=== PATIENT | female | born 1940 | race Caucasian/White ===

== ENCOUNTER → 2017-09-05 | Outpatient (CLI) | payer OTHER ==
--- NOTE | 2017-09-05 15:19 | MAMMOGRAPHY REPORT ---
BILATERAL DIGITAL SCREENING MAMMOGRAM TOMOSYNTHESIS WITH CAD: 09/05/2017 CLINICAL HISTORY: Routine screening. Patient has no complaints. TECHNIQUE: Breast tomosynthesis in addition to standard 2D mammography was performed. Current study was also evaluated with a Computer Aided Detection (CAD) system. COMPARISON: Comparison is made to exams dated: 09/04/2016 mammogram, 08/31/2015 mammogram, 08/28/2014 mammogram, 08/27/2013 mammogram, 08/26/2012 mammogram, and 08/22/2011 mammogram - [facility]. BREAST COMPOSITION: There are scattered areas of fibroglandular density in both breasts. FINDINGS: No suspicious masses, calcifications, or areas of architectural distortion are noted in ei ther breast. There has been no significant interval change compared to prior exams. IMPRESSION: ACR BI-RADS CATEGORY 1: NEGATIVE There is no mammographic evidence of malignancy. A 1 year screening mammogram is recommended. The pa tient will receive written notification of the results. Approximately 10% of breast cancers are not detected with mammography. A negative mammographic report should not delay biopsy if a clinically suggestive mass is present. Chio Wade M.D. /:09/05/2017 11:47:12 Electric Frying Pan Repairer: Herminia ARNOLD(Charley)(Rosalina), [facility] letter sent: Normal 1/2 BI-RADS Code: ACR BI-RADS Category 1: Negative
== END | disposition home or self-care (01) ==
LOC: C.MAMM 09:45
PROVIDERS: ATTEND Family Medicine
DX: Z12.31 Encounter for screening mammogram for malignant neoplasm of breast (principal)

== ENCOUNTER 2020-07-26 16:22 | Observation (INO) ==
[2020-07-26] MEDS ORDERED: SODIUM CHLORIDE 0.9% 1000ML 1,000 ML IV SCH (17:45)
--- NOTE | 2020-07-26 17:55 | Emergency Department Note ---
History of Present Illness General Chief complaint: Referred by Doctor Stated complaint: NO FEELING LT SIDE - DR REF Time Seen by Provider: 07/26/20 17:33 Source: patient Mode of arrival: ambulatory Limitations: no limitations History of Present Illness Provider complaint: Left hand and left foot numbness This is a 80-year-old female who presents from PCPs office for stroke like evaluation. The patient states that yesterday morning around 930 she lost a sensation of her left foot and left hand. The patient states that she was having some difficulty grabbing things. She was able to walk with minimal difficulty. The patient states that she now feels fine. When she was evaluated at the PCPs office they felt that she was a little weak in her left hand. The patient denies any headaches. She does not take any medication routinely other than her medication for osteoporosis. She does not take any antiplatelets. Allergies Allergy/AdvReac Type Severity Reaction Status Date / Time Quinolones Allergy Unknown Verified 11/26/09 03:28 Sulfa (Sulfonamide Allergy Unknown Verified 11/26/09 03:28 Antibiotics) sulfamethoxazole Allergy Unknown Verified 11/26/09 03:28 trimethoprim Allergy Unknown Verified 11/26/09 03:28 Past Med/Surg History Social History Smoking Status: Never smoker Feels Safe at Home: Yes Review of Systems A total of 10 systems reviewed and were otherwise negative Physical Exam Vital Signs Vital Signs - 24 hr 07/26/20 16:37 07/26/20 18:13 07/26/20 19:39 Temperature 37.0 C Temperature Source Oral Pulse Rate 78 Pulse Rate [Apical] 83 86 Respiratory Rate 18 18 18 Respiratory Effort / Characteristics Non-Labored Non-Labored Respiratory Depth Normal Normal Blood Pressure 168/96 H Blood Pressure [Left Arm] 157/92 H 165/120 H Blood Pressure Mean 120 Blood Pressure Mean [Left Arm] 113 135 Blood Pressure Position Sitting Pulse Oximetry 95 97 98 Oxygen Delivery Method Room Air Room Air Sepsis Recent Fever Within 48 Hours No Sepsis New/Unexplained Change in Mental Status No Sepsis Action Taken by Nursing No Action Required 07/26/20 19:47 07/26/20 20:12 07/26/20 20:30 Temperature Temperature Source Pulse Rate Pulse Rate [Apical] 73 74 74 Respiratory Rate 18 20 18 Respiratory Effort / Characteristics Respiratory Depth Blood Pressure Blood Pressure [Left Arm] 150/91 H 156/96 H 147/88 H Blood Pressure Mean Blood Pressure Mean [Left Arm] 110 116 107 Blood Pressure Position Pulse Oximetry 96 95 94 Oxygen Delivery Method Room Air Sepsis Recent Fever Within 48 Hours Sepsis New/Unexplained Change in Mental Status Sepsis Action Taken by Nursing CONSTITUTIONAL/VITAL SIGNS: Reviewed / noted above. GENERAL: Non-toxic in appearance. INTEGUMENTARY: Warm, dry, and [place]. HEAD: Normocephalic. EYES: without scleral icterus or trauma. ENT/OROPHARYNX: clear and moist. LYMPHADENOPATHY/NECK: Is supple without lymphadenopathy or meningismus. RESPIRATORY: Lungs clear and equal. CARDIOVASCULAR: Regular rate and rhythm. GI/ABDOMEN: Soft and nontender. No organomegaly or pulsatile mass. No rebound or guarding. Normal bowel sounds. EXTREMITIES: Warm and well perfused. BACK: No CVA tenderness. NEUROLOGICAL: Intact without focal deficits. No pronator drift. Cranial nerves are grossly intact. Normal cerebellar testing. No visual deficits. No appreciated weakness given she is right-handed. PSYCHIATRIC: normal affect. MUSCULOSKELETAL: Normally developed with good muscle tone. TRIAGE NURSING DOCUMENTATION REVIEWED. Course Administered Medications Sodium Chloride (Nss 1000ml) 1,000 mls @ 50 mls/hr IV .Q20H MORALES Stop: 08/25/20 17:44 Last Admin: 07/26/20 18:15 Dose: 50 mls/hr Documented by: [id number] Discontinued Medications Ioversol (Optiray 320 125ml) 119 ml IV ONCE ONE Stop: 07/26/20 18:59 Last Admin: 07/26/20 19:00 Dose: 119 ml Documented by: [id number] Medical Decision Making Differential Diagnosis Differential includes acute coronary syndrome, myocardial infarction, CVA, TIA, anemia, infection, pneumonia, UTI, pyelonephritis, poor nutrition, dehydration, electrolyte disturbance,hypoglycemia. Medical Records Attestation: I reviewed the patient's medical records. Home Medications Current Medication List: was personally reviewed by me Laboratory Data Attestation: I reviewed the patient's lab results. Result diagrams: 07/26/20 18:11 07/26/20 18:11 Lab Results 07/26/20 07/26/20 07/26/20 Range/Units 18:11 18:11 18:11 WBC 10.60 (4.8-10.8) K/uL RBC 5.21 (4.2-5.4) M/uL Hgb 15.1 (12.0-16.0) g/dL Hct 45.1 (37-47) % MCV 86.6 (80-100) fL MCH 29.0 (25-34) pg MCHC 33.5 (32-36) g/dL RDW Std Deviation 44.2 (36.4-46.3) fL RDW Coeff of Jagdeep 14.0 (11.5-14.5) % Plt Count 264 (130-400) K/uL MPV 10.5 H (7.4-10.4) fL Immature Gran % (Auto) 1.0 % Neut % (Auto) 89.7 % Lymph % (Auto) 6.8 % Stark % (Auto) 2.5 % Eos % (Auto) 0.0 % Baso % (Auto) 0.0 % Neut # (Auto) 9.50 H (1.4-6.5) K/uL Lymph # (Auto) 0.72 L (1.2-3.4) K/uL Stark # (Auto) 0.27 (0.11-0.59) K/uL Eos # (Auto) 0.00 (0-0.5) K/uL Baso # (Auto) 0.00 (0-0.2) K/uL Immature Gran # (Auto) 0.11 H (0.00-0.02) K/uL PT 10.4 (9.0-12.0) Seconds INR 1.0 (0.9-1.1) APTT 21.5 (21.0-31.0) Seconds PTT Ratio 0.8 Sodium 141 (136-145) mmol/L Potassium 4.0 (3.5-5.1) mmol/L Chloride 108 H (98-107) mmol/L Carbon Dioxide 28 (21-32) mmol/L Anion Gap 6.0 (3-11) BUN 15 (7-18) mg/dl Creatinine 0.74 (0.6-1.2) mg/dl Est Cr Clr Drug Dosing 52.7 ml/min Est GFR ( Amer) 87.4 Est GFR (Non-Af Amer) 75.4 BUN/Creatinine Ratio 20.8 H (10-20) Glucose 148 H (70-99) mg/dl Calcium 9.6 (8.5-10.1) mg/dl Magnesium 2.2 (1.8-2.4) mg/dl Total Bilirubin 0.3 (0.2-1) mg/dl AST 14 L (15-37) U/L ALT 18 (12-78) U/L Alkaline Phosphatase 76 (45-117) U/L Total Protein 7.1 (6.4-8.2) gm/dl Albumin 3.5 (3.4-5.0) gm/dl Globulin 3.6 (2.5-4.0) gm/dl Albumin/Globulin Ratio 1.0 (0.9-2) Imaging Data Attestation: I personally reviewed and interpreted this imaging study as follows: Radiologist's Impression: MRI of the brain IMPRESSION: 1. Three subcentimeter acute/subacute (likely greater than 24 hours old) lacunar infarcts involving the saavedra radiata of the right frontal lobe. 2. No acute or subacute territorial infarct, midline shift or intracranial hemorrhage. 3. Age-related involutional changes with moderate to extensive chronic microvascular ischemic changes. CT head/brain wo con CLINICAL HISTORY: 80 years-old Female with Stroke evaluation . Acute strokelike symptoms TECHNIQUE: Multiple axial CT images of the head were obtained without contrast. A dose lowering technique was utilized adhering to the principles of ALARA. COMPARISON: CTA head neck of same day FINDINGS: No acute intracranial hemorrhage, midline shift, intracranial mass, hydrocephalus, territorial ischemia or abnormal extra-axial collection. Age- related involutional changes. Patchy white matter hypodensities suggestive of chronic microvascular ischemic disease. The calvarium is intact. The paranasal sinuses, mastoid air cells, and middle ear cavities are clear. IMPRESSION: No acute intracranial abnormality. IMPRESSION: 1. Focal short segment area of high-grade stenosis involves the P1 segment right posterior cerebral artery. 2. 50% luminal narrowing involves the mid aspect of the left M1 segment. 3. No aneurysm, dissection or proximal branch occlusion. ECG Data Attestation: I personally reviewed and interpreted this ECG as follows: Indication: + weakness Rate (beats per minute): 75 Rhythm: + normal sinus ECG ST segments: no ST elevation ECG Findings: no PVCs Prescription Drug Monitoring [place] Drug [place] reviewed and no issues identified MDM Narrative This is an 80-year-old female who presents to the ED with a chief complaint of possible strokelike symptoms or TIA symptoms. Her symptoms started at 9:30 AM yesterday. She is not on any antiplatelet medications. In fact the patient does not take any medication other than something for osteoporosis. The patient had some left hand and left foot numbness yesterday. It has since resolved but she was sent here by her PCP as they felt that she had a little weakness on the left side. The patient is ambulatory in the room. She is in no distress and has no complaints at this time. Her vital signs reveal hypertension. The patient's twelve-lead EKG shows a normal sinus rhythm at a rate of 75. CT scan of the brain was negative for acute process. MRI of the brain reveals 3 subcentimeter acute/subacute lacunar infarcts as noted above. The patient was treated with aspirin p.o. She will be seen by the hospitalist for further inpatient evaluation and care. Impression & Plan Acute CVA (cerebrovascular accident) Discharge Plan Visit Data Chief Complaint: Referred by Doctor Stated Complaint: NO FEELING LT SIDE - DR REF ED Provider: Yaakov Vogel Discharge Problem: Acute CVA (cerebrovascular accident) Patient Disposition: Being Evaluated by Hospitalist Forms Stand Alone Forms: My [facility] Referrals Referrals: Kanidce Vyas MD [Primary Care Provider] -
[2020-07-26 18:23] LABS: Hematocrit (blood only) 45.1 % (37-47); Hemoglobin 15.1 g/dL (12.0-16.0); Immature Granulocytes # (auto) 0.11 K/uL (0.00-0.02); Lymphocytes # (auto) 0.72 K/uL (1.2-3.4); Lymphocytes % (auto) 6.8 %; Mean Corpuscular Hgb Conc 33.5 g/dL (32-36); Mean Corpuscular Volume 86.6 fL (80-100); Mean Platelet Volume 10.5 fL (7.4-10.4); Monocytes # (auto) 0.27 K/uL (0.11-0.59); Monocytes % (auto) 2.5 %; Neutrophils % (auto) 89.7 %; Platelet Count 264 K/uL (130-400); RDW Standard Deviation 44.2 fL (36.4-46.3); Red Blood Count 5.21 M/uL (4.2-5.4)
[2020-07-26 18:34] LABS: Partial Thromboplastin Ratio 0.8; Partial Thromboplastin Time 21.5 Seconds (21.0-31.0); Prothrombin Time 10.4 Seconds (9.0-12.0)
[2020-07-26 18:39] LABS: Albumin Level 3.5 gm/dl (3.4-5.0); BUN Creatinine Ratio 20.8 (10-20); Calcium 9.6 mg/dl (8.5-10.1); Creatinine Clr Calc Pharmacy 52.7 ml/min; Est GFR (African American) 87.4; Est GFR (Non-African American) 75.4; Magnesium 2.2 mg/dl (1.8-2.4)
[2020-07-26 18:42] LABS: Bilirubin,Total 0.3 mg/dl (0.2-1); Globulin 3.6 gm/dl (2.5-4.0); Total Protein 7.1 gm/dl (6.4-8.2)
[2020-07-26] MEDS ORDERED: OPTIRAY 320 125ml IV ONE (18:58)
--- NOTE | 2020-07-26 19:06 | CT Scan Report ---
CT head/brain wo con CLINICAL HISTORY: 80 years-old Female with Stroke evaluation . Acute strokelike symptoms TECHNIQUE: Multiple axial CT images of the head were obtained without contrast. A dose lowering tech nique was utilized adhering to the principles of ALARA. COMPARISON: CTA head neck of same day FINDINGS: No acute intracranial hemorrhage, midline shift, intracranial mass, hydrocephalus, territorial ischem ia or abnormal extra-axial collection. Age-related involutional changes. Patchy white matter hypodens ities suggestive of chronic microvascular ischemic disease. The calvarium is intact. The paranasal sinuses, mastoid air cells, and middle ear cavities are clear . IMPRESSION: No acute intracranial abnormality. ACT 112: Negative or not required by law. The above report was generated using voice recognition software. It may contain grammatical, syntax o r spelling errors. Electronically signed by: Terry Mesa M.D. 07/26/2020 7:04 PM
--- NOTE | 2020-07-26 19:36 | CT Scan Report ---
CT angio neck with con, CT angio head w con CLINICAL HISTORY: 80 years-old Female with Stroke evaluation. Acute strokelike symptoms COMPARISON STUDY: Head CT of same day TECHNIQUE: Following the IV administration of 1 19 mL of Optiray 320, CT angiogram of the head and ne ck was performed from the aortic arch to the skull apex. Images are reviewed in the axial, sagittal, and coronal planes. 3-D MIPS images are created and assessed. IV contrast was administered without co mplication. All measurements were calculated based on NASCET criteria. A dose lowering technique was utilized adhering to the principles of ALARA. CT DOSE: 1074.08 mGy.cm FINDINGS: Three-vessel thoracic aortic arch. Patency of the innominate and imaged subclavian arteries. The comm on and internal carotid arteries are patent. Tortuosity of the distal cervical segments. Calcified pl aque of the cavernous and supraclinoid segments without high-grade stenosis. There is approximately 5 0% luminal narrowing noted involving the mid aspect of the left M1 segment on image 93 series 5. Mild multifocal luminal narrowing of the middle cerebral arteries. The anterior cerebral arteries are pat ent. Cerebral venous sinuses are also patent. Tortuosity of the dominant proximal left vertebral joshua ry. Developmental diminutive right vertebral artery with the majority of the vessel terminating into the right PICA. Patent basilar artery. Patent posterior cerebral arteries short segment high-grade st enosis of the right posterior cerebral artery P1 segment, image 90 series 5. No aneurysm or dissectio n. There is no abnormal intracranial enhancement. Lung apices are clear without pneumothorax. The lesion of the left thyroid lobe, 1.6 cm. Multilevel d egenerative changes of the spine. IMPRESSION: 1. Focal short segment area of high-grade stenosis involves the P1 segment right posterior cerebral a rtery. 2. 50% luminal narrowing involves the mid aspect of the left M1 segment. 3. No aneurysm, dissection or proximal branch occlusion. ACT 112: Negative or not required by law. The above report was generated using voice recognition software. It may contain grammatical, syntax o r spelling errors. Electronically signed by: Terry Mesa M.D. 07/26/2020 7:35 PM
--- NOTE | 2020-07-26 20:02 | Magnetic Resonance Report ---
MR brain wo con HISTORY: 80 years-old Female tia--left hand and foot numbness acute strokelike symptoms COMPARISON: Head CT, CTA head neck of same day TECHNIQUE: Multiplanar multisequence MRI of the brain was obtained without the use of IV contrast. FINDINGS: Shovel Engineer localizer images demonstrate no gross extracranial abnormality. There are 3 subcentimeter foci of restricted diffusion measuring up to 4 mm within the saavedra radiata right frontal lobe, image 13 s eries 4 with decreased signal on the ADC map and mildly increased T2/FLAIR signal. No acute or subacu te territorial infarct. Age-related involutional changes. Moderate to extensive patchy T2/FLAIR hyper intensities throughout the white matter of the bilateral cerebral hemispheres. There is no acute intr acranial hemorrhage, midline shift, abnormal extra-axial collection, hydrocephalus or intracranial ma ss. Major vascular flow voids and cerebral venous sinuses appear patent. Trace left mastoid effusion. Par anasal sinuses are generally clear. Skull and soft tissues are unremarkable. Prior bilateral lens rep lacement. IMPRESSION: 1. Three subcentimeter acute/subacute (likely greater than 24 hours old) lacunar infarcts involving t he saavedra radiata of the right frontal lobe. 2. No acute or subacute territorial infarct, midline shift or intracranial hemorrhage. 3. Age-related involutional changes with moderate to extensive chronic microvascular ischemic changes . ACT 112: Negative or not required by law. The above report was generated using voice recognition software. It may contain grammatical, syntax o r spelling errors. Electronically signed by: Terry Mesa M.D. 07/26/2020 8:01 PM
[2020-07-26] MEDS ORDERED: ASPIRIN CHEW 324 MG PO STA (21:02)
[2020-07-26] MEDS ORDERED: POLYETHYLENE (MIRALAX) 17 GM PACK PO PRN (23:25)
[2020-07-26] MEDS ORDERED: PHARMACIST DISCHARGE MED REC CONSULT PRN (23:25)
[2020-07-26] MEDS ORDERED: ACETAMINOPHEN 325 MG TAB PO PRN (23:25)
[2020-07-26] MEDS ORDERED: ALUMINUM/MAGNESIUM SUSP 30 ML UDC PO PRN (23:25)
[2020-07-26] MEDS ORDERED: ONDANSETRON INJ 2 MG/ML 2 ML VIAL IV PRN (23:25)
[2020-07-27] MEDS ORDERED: HYDROCORTISONE 1% CRM 30 GM TUBE EXT PRN (00:38)
[2020-07-27] MEDS: NSS + 20MEQ KCL 20 MEQ/1,000 ML BAG IV SCH ×2 (01:07→12:57)
--- NOTE | 2020-07-27 02:36 | History & Physical Report ---
Date of Service July 27, 2020 Assessment & Plan (1) Acute CVA (cerebrovascular accident): Estrellita Medina is an 80 yo woman with no major PMH here for CVA CVA Patient with three small areas of ischemia in right frontal lobe and corresponding left sided motor symptoms Neuro exam has returned to normal at this point Admitted, starting on atorvastatin and ASA Neurology consulted Patient with right SHOWER ROOM ATTENDANT with a short segment of severe stenosis but this appears to be unrelated to her symptoms or her areas of ischemic changes on MRI PT and OT consulted PErmissive hypertension for tonight 159/97 may want to try to control blood pressure before discharge or follow up with outpatient provider given she has no history of HTN DVT PPx: Lovenox F/E/N: Regular PO intake Dispo: Admit to med surg for 24 hour monitoring DNR/DNI (2) Constipation: Admission and Anticipated Discharge Date Admission Date: July 26, 2020 History of Present Illness Chief Complaint: CVA symptoms Primary Care Provider: Kandice Vyas MD Estrellita Medina is a generally healthy 80 year old woman with a past medical history significant for only tonsillectomy and osteoporosis who started having foot and hand weakness on Sunday morning. She said it felt as if she couldn't lift her left foot off the floor and a left hand weakness and was dropping things. This lasted for the better part of a day and she came to see her PCP on Sunday and she was mostly resolved but they felt she still had some mild left sided weakness and sent her to ED for further evaluation. in ED patient had was hypertensive to 159/[address] head negative CTA showing small segment of severe stenosis in right SHOWER ROOM ATTENDANT and MRI showing three small areas of ischemic changes in the right frontal lobe. Allergies Allergy/AdvReac Type Severity Reaction Status Date / Time Quinolones Allergy Unknown Verified 07/26/20 21:28 Sulfa (Sulfonamide Allergy Unknown Verified 07/26/20 21:29 Antibiotics) sulfamethoxazole Allergy Unknown Verified 07/26/20 21:29 trimethoprim Allergy Unknown Verified 07/26/20 21:29 Home Medications Home Medications Medication Instructions Recorded Confirmed Type alendronate 70 mg PO WK 07/26/20 07/26/20 History aspirin 81 mg PO QAM 30 Days #30 tab 07/27/20 Rx atorvastatin 40 mg PO QAM 30 Days #30 tab 07/27/20 Rx lisinopril 5 mg PO DAILY #30 tab 07/27/20 Rx Past Med/Surg History Social History Smoking Status: Never smoker Second Hand Exposure: No; Hx Alcohol Use: No Hx Substance Use: No Preferred Language: Croatian Communication Ability: Effective Team Psychologist Required: No Beliefs That Will Affect Care: None Current Living Situation: Alone Feels Safe at Home: Yes Assistive Devices: Denture - Upper and Glasses Review of Systems Review of Systems: All systems reviewed & are unremarkable except as noted in HPI & below Physical Exam Constitutional: well developed and well nourished; no acute distress and not ill appearing Eyes: PERRL, conjunctivae normal, anicteric sclerae ENMT: external ear and nose normal, oropharynx normal Respiratory: normal respiratory effort, lungs clear to auscultation Cardiovascular: RRR, no murmur, no edema Gastrointestinal (Abdomen): normal bowel sounds, soft, nontender, no hepatosplenomegaly Musculoskeletal: no cyanosis or clubbing, extremities motor strength 5/5 Skin: no rashes, warm and dry Neurologic: patellar DTR's 2+ bilat, sensation intact and PERRL, EOMI, accommodation nl, no face palsy, no dysarthria CN's II-XI intact bilaterally Results & Data Results & Data ([facility]) Vital Signs (Past 12 Hours) Vital Signs Temp Pulse Pulse Resp BP BP BP 07/26/20 23:15 36.7 C 79 20 159/97 H 07/26/20 22:30 69 18 163/101 H 07/26/20 21:01 81 18 151/90 H 07/26/20 20:30 74 18 147/88 H 07/26/20 20:12 74 20 156/96 H 07/26/20 19:47 73 18 150/91 H 07/26/20 19:39 86 18 165/120 H 07/26/20 18:13 83 18 157/92 H 07/26/20 16:37 37.0 C 78 18 168/96 H Pulse Ox 07/26/20 23:15 97 07/26/20 22:30 97 07/26/20 21:01 95 07/26/20 20:30 94 07/26/20 20:12 95 07/26/20 19:47 96 10/05/20 19:39 98 07/26/20 18:13 97 07/26/20 16:37 95 Code Status & VTE Plan VTE Prophylaxis Plan VTE Prophylaxis will be ordered: Yes Supervising Physician Co-Signing Physician Notes Attending addendum: I have physically seen this patient, have supervised the medical residents activities, and agree with the H&P unless as otherwise noted. Assessment and Plan: Acute frontal lobe lacunar infarcts/left hemiparesis on exam- The patient will be admitted to telemetry for serial cardiac enzymes, serial EKG's, cardiac rhythm monitoring and a 2-D echocardiogram with Dopplers. Examination has normalized while still in the ED CVA without TPA order set. Consult PT/OT/speech therapy/neurology Permissive hypertension Aspirin 81 mg daily and atorvastatin 80 mg daily to be started. Check a fasting lipid panel and hemoglobin A1c Remaining orders and notations as noted Resident Activity Tracking Resident Involvement: Resident Care Provided Care Provided: Adult Hospital Medicine
[2020-07-27 06:25] LABS: Basophils # (auto) 0.01 K/uL (0-0.2); Basophils % (auto) 0.1 %; Eosinophils # (auto) 0.03 K/uL (0-0.5); Eosinophils % (auto) 0.2 %; Hematocrit (blood only) 42.2 % (37-47); Hemoglobin 13.8 g/dL (12.0-16.0); Immature Granulocytes # (auto) 0.07 K/uL (0.00-0.02); Immature Granulocytes % (auto) 0.6 %; Lymphocytes # (auto) 2.62 K/uL (1.2-3.4); Mean Corpuscular Hemoglobin 28.8 pg (25-34); Mean Corpuscular Hgb Conc 32.7 g/dL (32-36); Mean Corpuscular Volume 87.9 fL (80-100); Mean Platelet Volume 10.8 fL (7.4-10.4); Monocytes # (auto) 1.34 K/uL (0.11-0.59); Monocytes % (auto) 10.8 %; Neutrophils # (auto) 8.38 K/uL (1.4-6.5); Neutrophils % (auto) 67.3 %; Platelet Count 250 K/uL (130-400); RDW Coefficient of Variation 13.9 % (11.5-14.5); RDW Standard Deviation 44.7 fL (36.4-46.3); White Blood Count 12.45 K/uL (4.8-10.8)
[2020-07-27 06:57] LABS: BUN Creatinine Ratio 22.8 (10-20); Blood Urea Nitrogen 15 mg/dl (7-18); Calcium 8.6 mg/dl (8.5-10.1); Carbon Dioxide 29 mmol/L (21-32); Chloride 108 mmol/L (98-107); Cholesterol 182 mg/dl (0-200); Creatinine Clr Calc Pharmacy 52.8 ml/min; Est GFR (African American) 94.4; Est GFR (Non-African American) 81.5; Glucose 75 mg/dl (70-99); Potassium 3.8 mmol/L (3.5-5.1); Sodium 142 mmol/L (136-145)
[2020-07-27 07:03] LABS: Chol HDL Ratio 3; HDL Cholesterol 66 mg/dl; LDL Cholesterol Calculated 91 mg/dl; Triglycerides 124 mg/dl (0-150); Troponin I < 0.015 ng/ml (0-0.045); VLDL Cholesterol 25 mg/dl
[2020-07-27 08:47] LABS: Estimated Average Glucose 123 mg/dl; Hemoglobin A1C 5.9 % (4.5-5.6)
[2020-07-27] MEDS ORDERED: ENOXAPARIN INJ 40 MG/0.4 ML SYR SQ SCH (09:00)
[2020-07-27] MEDS ORDERED: ASPIRIN 81 MG ECTAB PO SCH (09:00)
[2020-07-27] MEDS ORDERED: ATORVASTATIN 40 MG TAB PO SCH (09:00)
--- NOTE | 2020-07-27 12:17 | Discharge Summary ---
Date of Service July 27, 2020 Admission HPI Per Admitting Provider Estrellita Medina is a generally healthy 80 year old woman with a past medical history significant for only tonsillectomy and osteoporosis who started having foot and hand weakness on Sunday morning. She said it felt as if she couldn't lift her left foot off the floor and a left hand weakness and was dropping things. This lasted for the better part of a day and she came to see her PCP on Sunday and she was mostly resolved but they felt she still had some mild left sided weakness and sent her to ED for further evaluation. in ED patient had was hypertensive to 159/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 Principal Diagnosis CVA Discharge Exam Constitutional well developed and well nourished; no acute distress and not ill appearing Eyes PERRL, conjunctivae normal, anicteric sclerae ENMT external ear and nose normal, oropharynx normal Respiratory normal respiratory effort, lungs clear to auscultation Cardiovascular RRR, no murmur, no edema Gastrointestinal (Abdomen) normal bowel sounds, soft, nontender, no hepatosplenomegaly Musculoskeletal no cyanosis or clubbing, extremities motor strength 5/5 Skin no rashes, warm and dry Neurologic patellar DTR's 2+ bilat, sensation intact and PERRL, EOMI, accommodation nl, no face palsy, no dysarthria CN's II-XI intact bilaterally Discharge Data Allergies Allergy/AdvReac Type Severity Reaction Status Date / Time Quinolones Allergy Unknown Verified 07/26/20 21:28 Sulfa (Sulfonamide Allergy Unknown Verified 07/26/20 21:29 Antibiotics) sulfamethoxazole Allergy Unknown Verified 07/26/20 21:29 trimethoprim Allergy Unknown Verified 07/26/20 21:29 Consultations 07/26/20 21:06 ED Decision to Admit Stat 07/26/20 23:25 Consult Case Management - Discharge Planning Routine Consult Neurology Routine Ordered Studies 07/26/20 17:44 CT angio head w con Stat CT angio neck with con Stat CT head/brain wo con Stat MR brain wo con Stat Hospital Course (1) Acute CVA (cerebrovascular accident): Estrellita Medina is an 80 yo woman with no major PMH here for CVA Cerebrovascular Accident: - Patient with three small areas of ischemia in right frontal lobe and corresponding left sided motor symptoms - Neuro exam has returned to normal at this point - Neurology consulted: - CT Head: - No acute intracranial abnormality. - CTA Head/Neck: - Focal short segment area of high-grade stenosis involves the P1 segment right posterior cerebral artery. - 50% luminal narrowing involves the mid aspect of the left M1 segment. - No aneurysm, dissection or proximal branch occlusion. - MRI Brain - Three subcentimeter acute/subacute (likely greater than 24 hours old) lacunar infarcts involving the saavedra radiata of the right frontal lobe. - No acute or subacute territorial infarct, midline shift or intracranial hemorrhage. - Age-related involutional changes with moderate to extensive chronic microvascular ischemic changes. - started on ASA 81mg daily, Atorvastatin 40mg daily, and Lisinopril 5mg daily - to have BP recheck in one week for determination of risks of hypotension given apparent baseline normotensive history (2) Constipation: Total Time Total Time Spent Total Time Spent (In Minutes): I spent 35 minutes seeing this patient, reviewing records, preparing discharge, and discussing the case with neurology software consultant. Discharge Plan Discharge Items Patient Disposition: Home - Self-Care Reason For Visit: CVA Discharge Diagnosis: CVA Activity: Per Instructions section Non-emergency contact: Primary Care Provider Call non-emergency contact if: you have any medication questions and your symptoms worsen Follow-up/Referrals: Kandice Vyas MD [Primary Care Provider] - Mariaelena Serrano MD [Resident] - 08/05/20 10:30 am Diet: Heart Healthy Addtl Attending Provider Instructions: You were seen and admitted following concern for new onset left sided weakness, that started on Sunday and persisted throughout the day and into Sunday evening. During this admission, imaging studies of your head demonstrated three strokes of uncertain age. For this you are being started on three new medications to limit the risk of this recurrence going forward. These medications include: 1) Aspirin 81mg once daily 2) Atrovastatin 40mg once daily 3) Lisinopril 5mg once daily You will continue to take these medications daily, and next week you will have an appointment at the [facility] offices with Dr. Serrano at 10:30am. You will also have an appointment with the Neurology clinic in 6-8 weeks and they will be calling you to set this appointment up in the next few days. Pending Studies at Discharge: No Stand-Alone Forms: My [facility], Smoking Cessation Medications and DC Order Prescriptions: New atorvastatin 40 mg Tablet 40 mg PO QAM 30 Days Qty: 30 RF: 0 aspirin 81 mg Tablet,Delayed Release (Dr/Ec) 81 mg PO QAM 30 Days Qty: 30 RF: 0 lisinopril 5 mg tablet 5 mg PO DAILY Qty: 30 RF: 0 Continued alendronate 70 mg tablet 70 mg PO WK RF: 0 Discharge Orders: Discharge Order (Routine); Ordered 07/27/20 Ordered By: Tai Diallo/Other Patient Handouts: Discharge Instructions for Stroke, Atorvastatin tablets, Lisinopril tablets, Aspirin ASA oral tablets Admission Data Admit Date/Time: 07/26/20 22:39 Attending Provider: Jorgito Damian Admit Provider: Kedar Coleman Primary Care Provider: Kandice Vyas Other Providers: García Motley ; Brigit Moss Other Interventions: Discharge Summary Assessment (RN) Last Done: 07/27/20 14:29 Supervising Physician Co-Signing Physician Notes I also saw the patient and confirmed kinsey portions of the history and physical examination. I agree with the impression and plan as noted in the resident documentation. I also discussed the case with the neurology software consultant. The patient's symptoms were essentially resolved at time of emergency department presentation. Reviewed signs and symptoms of strokes and need to return to the emergency department if recurrence. Recommend outpatient follow-up with primary care physician to reevaluate blood pressure. Antiplatelet: Aspirin 81 mg daily Statin: 40 mg daily Anticoagulation: Not indicated at this time Follow-up with PCP in 1 to 2 weeks. This will be arranged prior to discharge. Resident Activity Tracking Resident Involvement: Resident Care Provided Care Provided: Adult Hospital Medicine
--- NOTE | 2020-07-27 13:23 | XCELERA ---
[id number]
--- NOTE | 2020-07-27 13:44 | Neurology Consultation ---
Date of Consultation July 27, 2020 Assessment & Plan (1) Stroke: Estrellita Medina is an 80 yo woman w/ PMH of HTN, HLD and osteoporosis who p/t [facility] after acute onset of L-sided numbness in her hand/foot. Symptom localization: right saavedra radiata Stroke mechanism: cardioembolic vs lacunar/lipohyalinosis Stroke WorkUp: - CT head: no hemorrhage or hypodensity. - CTA head/neck: high grade stenosis in the right P1, mild narrowing of the left M1 MCA branch, hypoplastic right vertebral artery and no other LVO, high-grade stenosis or aneurysm - MRI brain: several punctate infarcts in the right saavedra radiata, mild to moderate small vessel disease and no midline malformation - MRA head/neck: pending - TTE: EF 60-65%, no valvular abnormalities noted - Telemetry: pending - A1c: 5.9 - FLP: 91 - Troponin: negative Stroke Management: - Acute treatment: ASA - Continuous cardiac monitoring, recommend 30 day event monitor as outpatient if telemetry here unrevealing - Vitals, Neurochecks, NIHSS per unit routine - BP parameters: SBP CAP 180, restart home anti-hypertensives - Consult speech, PT, OT for supportive management - Will counselor nurses' association concerning stroke education, smoking cessation, healthy diet, physical activity, weight loss - Follow up with PCP for assistance with outpatient goals (BP <130/80, LDL <70, A1c <7) - Follow up in neurology clinic in 6-8 weeks (with [facility]) Secondary Stroke Prevention: - Antiplatelet: ASA 81mg po daily - Anticoagulation: Not indicated at this time - Statin: Atorvastatin 40mg daily HTN: - BP parameters, as above - Restart home medications with goal of lowering BP to normotension over next 3- 4 days FEN/GI: - Diet: Cardiac HH diet and PO meds given absence of bulbar signs or symptoms - Monitor lytes and replete PRN Glucose Control: - Sliding scale insulin and accuchecks per primary team to avoid hyperglycemia Thank you for this interesting consult. Plan of care was discussed with primary team. Please call with any questions. (2) HTN (hypertension): (3) HLD (hyperlipidemia): History of Present Illness Attending Physician: Jorgito Damian, History of Present Illness Estrellita Medina is an 80 yo woman w/ PMH of HTN, HLD and osteoporosis who p/t [facility] after acute onset of L-sided numbness in her hand/foot. 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 In the ED, she was afebrile, BP 168/96, heart rate 78, respiratory rate 18, satting 95% on room air. Labs notable for WBC 10.6, hemoglobin 15.1, platelets 264, electrolytes within normal, creatinine 0.74, glucose 148, INR 1.0, LFTs within normal, calcium/magnesium within normal. Imaging independently reviewed. CT head shows no hemorrhage or hypodensity. CTA head and neck shows high grade stenosis in the right P1, mild narrowing of the left M1 MCA branch, hypoplastic right vertebral artery and no other LVO, high-grade stenosis or aneurysm. MRI brain shows several punctate infarcts in the right saavedra radiata, mild to moderate small vessel disease and no midline malformation. She was admitted for stroke work-up. On examination, she reports that she was in her normal state of health until Sunday morning when she woke up and noticed left hand and left foot weakness. She felt like she was dropping things with her left hand and it was doing its own thing. Went to her PCP yesterday and was referred for further evaluation given concern for stroke. Today she reports all symptoms have dissipated. Denies any history of hypertension, hyperlipidemia, tobacco abuse, diabetes or known atrial fibrillation. She does not take an aspirin at home. Patient Features: Admission NIHSS: 0 Admission Modified Adria Scale: 0-1 Time patient last seen well: 9:30am on 07/25/20 Wake up stroke: No Intubation status: Not intubated Stroke Risk Factors: Hypertension: Y Hyperlipidemia: Y Atrial Fib: N Tobacco: N Diabetes: N Taking NOAC or warfarin: N Allergies Allergy/AdvReac Type Severity Reaction Status Date / Time Quinolones Allergy Unknown Verified 07/26/20 21:28 Sulfa (Sulfonamide Allergy Unknown Verified 07/26/20 21:29 Antibiotics) sulfamethoxazole Allergy Unknown Verified 07/26/20 21:29 trimethoprim Allergy Unknown Verified 07/26/20 21:29 Home Medications Home Medications Medication Instructions Recorded Confirmed Type alendronate 70 mg PO WK 07/26/20 07/26/20 History aspirin 81 mg PO QAM 30 Days #30 tab 07/27/20 Rx atorvastatin 40 mg PO QAM 30 Days #30 tab 07/27/20 Rx lisinopril 5 mg PO DAILY #30 tab 07/27/20 Rx Patient History Social History Smoking Status: Never smoker Second Hand Exposure: No; Do You Dip or Chew Tobacco: No; Tobacco Cessation Education Requested by Patient: No Hx Alcohol Use: No Hx Substance Use: No Preferred Language: Indonesian Communication Ability: Effective 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 Exam (Neuro) Physical Exam: General Exam: GEN: NAD, sitting/lying down in examination bed. HEENT: No conjunctival injection, no rhinorrhea, moist mucus membranes. CV: RRR on monitor, peripheral pulses 2+ bilaterally, no significant edema. PULM: Nonlabored respirations on room air. Neuro Exam: MS: Awake and Alert. Oriented to person, place, and date. Speech fluent and appropriate without dysarthria or paraphasic errors. Language intact including naming, comprehension, repetition. Cognition and memory grossly intact. Attention intact. No neglect. CN: Visual polanco full, + blink to threat bilaterally. No extinction to double simultaneous stimuli. Normal fundoscopic exam. PERRLA OU. EOMI without nystagmus. Facial sensation intact to LT. Facial muscles full and symmetric. Hearing intact to finger rub bilaterally. Uvula midline with symmetric palatal elevation. SCMs and shoulder shrug normal. Tongue midline. MOTOR: Normal bulk and tone. + pronator drift in LUE. BUE strength 5/5 at deltoids, biceps, triceps, wrist flexors and extensors, and finger flexors bilaterally. BLE strength 5/5 at iliopsoas, hamstrings, quadriceps, tibialis anterior, and gastrocnemius bilaterally. REFLEXES: 1+ at biceps, triceps, brachioradialis, trace patella, and absent Achilles bilaterally. Flexor plantar responses bilaterally. SENSORY: Intact to LT/vibration throughout, no extinction to double simultaneous stimuli. COORDINATION: No dysmetria or ataxia on [id number] bilaterally. Normal Sourav bilaterally. GAIT: Deferred due to physical status. NIH STROKE SCALE 1A. Level of Consciousness (0-3) = 0 1B. LOC Questions (0-2) = 0 1C. LOC Commands (0-2) = 0 2. Best Horizontal Gaze (0-2) = 0 3. Visual Polanco (0-3) = 0 4. Facial Palsy (0-3) = 0 5. Motor Arm Right (0-4) = 0 Left (0-4) = 0 6. Motor Leg Right (0-4) = 0 Left (0-4) = 0 7. Limb Ataxia (0-2) = 0 8. Sensory (0-2) = 0 9. Best Language (0-3) = 0 10. Dysarthria (0-2) = 0 11. Extinction and Inattention (0-2) = 0 NIHSS TOTAL = 0 Results & Data ([facility]) Vital Signs (Past 12 Hours) Vital Signs Temp Pulse Pulse Resp BP BP Pulse Ox 07/27/20 12:07 36.6 C 75 18 137/71 98 07/27/20 08:12 36.7 C 67 19 145/83 H 96 07/27/20 07:27 66 07/27/20 04:43 36.6 C 62 18 142/88 H 98 PG Care Time/CCT Total # of Minutes Spent Total Time Spent with Patient: Total time spent is greater than 50% in coordination of care (as documented) at patient's floor/unit and/or counseling patient: Coding Level of Care Code 09241 Initial Inpt Care Lvl 3 Diagnoses Stroke I63.9 HTN (hypertension) I10 HLD (hyperlipidemia) E78.5
[2020-07-27] MEDS ORDERED: STROKE PATIENT DISCHARGE PRN (14:34)
--- NOTE | 2020-07-27 15:24 | Pharmacy Report ---
Pharmacist Stroke Counseling - Date of Service July 27, 2020 - Scope: Pharmacy has been consulted to provide medication discharge counseling for this patient admitted with [ischemic stroke] [hemorrhagic stroke] [transient ischemic attack] as per the Pharmacist Discharge Counseling for Stroke Patients Matthew col. - Medications on Discharge: Home Medications Medication Instructions Recorded Confirmed alendronate 70 mg PO WK 07/26/20 07/26/20 New Rx's Medication Instructions Recorded aspirin 81 mg PO QAM 30 Days #30 tab 07/27/20 atorvastatin 40 mg PO QAM 30 Days #30 tab 07/27/20 lisinopril 5 mg PO DAILY #30 tab 07/27/20 - Action: The above medications, specifically ones for stroke treatment/prophylaxis, have been reviewed in detail with the patient and/or patient reimbursement representative(s) prior to discharge. This includes indication, common adverse reactions, drug interactions, and medication administration. Medication counseling has been employed using the teach-back method to ensure understanding. - Outcome: The patient and/or patient reimbursement representative(s) have demonstrated understanding of the medications. Additional comments: Talked to patient about new medications, reviewed side effects/ monitoring. Patient eager to leave hospital. No other pertinent positives on interview Thank you for allowing pharmacy to be involved in the care of this patient. Please call [phone] with any additional questions
--- NOTE | 2020-07-27 17:18 | Electrocardiogram Report ---
Test Reason : Blood Pressure : / mmHG Vent. Rate : 075 BPM Atrial Rate : 075 BPM P-R Int : 138 ms QRS Dur : 080 ms QT Int : 362 ms P-R-T Axes : 062 045 044 degrees QTc Int : 404 ms Normal sinus rhythm Normal ECG When compared with ECG of 03-FEB-2008 09:59, No significant change was found Confirmed by Sekou Horner ([id number]) on 07/27/2020 5:17:57 PM Referred By: Kandice Vyas Confirmed By:Jean Carlos Horner
--- NOTE | 2020-07-27 21:20 | Billing Data ---
Date of Service July 27, 2020 Coding Level of Care Code 19718 Initial Inpt Care Lvl 3
[2020-08-01] MEDS ORDERED: ALENDRONATE SODIUM 70 MG TAB PO SCH (06:30)
== END 2020-07-27 14:01 | disposition home or self-care (01) ==
LOC: ED 16:22 → 2S 16:22 → SUATTDRO 22:39 → 2S 22:56